=== PATIENT | male | born 1965 | race Caucasian/White ===

== ENCOUNTER → 2022-11-18 09:10 | Outpatient (CLI) | payer OTHER, SELFPAY ==
[2022-11-18 10:49] LABS: COVID19 -Nasal RAPID Negative (Negative)
== END ==
PROVIDERS: PCP Family Medicine; Visit Provider Surgery
DX: Z20.822 Contact with and (suspected) exposure to COVID-19 (principal); Z01.812 Encounter for preprocedural laboratory examination
CPT/HCPCS: 87635; C9803

== ENCOUNTER 2022-11-19 14:25 | Day surgery (SDC) | payer OTHER, SELFPAY ==
[2022-11-19 14:42] VITALS: BMI 24.4
[2022-11-19 14:47] VITALS: BP 112/73; PULSE 50; RESP 16; TEMP 36.2; O2SAT 99
[2022-11-19] MEDS: LACTATED RINGERS 1,000 ML 42 ML IV (14:57)
--- NOTE | 2022-11-19 15:28 | P.HP_ITS ---
History of Present Illness History of Present Illness Date Patient Seen: 11/19/22 Time Patient Seen: 15:28 Chief complaint: SCREENING COLONOSCOPY Narrative: Bro is a 57-year-old man who is here for colonoscopy for colon cancer screening. His last 1 was just over 10 years ago. His father had colon cancer in his 70s. Patient History Medical History (Updated 11/19/22 @ 15:29 by Mansoor Brandt MD) Bilateral hand numbness Bilateral shoulder pain Body posture problem Cellulitis of hand, left Chronic left shoulder pain Eczema History of gluten sensitivity Hypothyroidism (acquired) Screen for colon cancer Swelling of joint, hand, left Tinnitus of left ear Upper extremity somatic dysfunction Family & Social History Social History: household members spouse Tobacco & Substance use: Smoking Status Never smoker alcohol intake current alcohol intake frequency a few times a week Substance Use Type does not use Meds Home Medications and Allergies Home Medications Medication Instructions Recorded Confirmed Type betamethasone valerate 0.1 % 1 applic topical BID PRN rash #15 10/22/20 11/19/22 Rx topical cream grams thyroid (pork) 90 mg tablet ([employer] 90 mg PO DAILY 10/24/20 11/19/22 History Thyroid) sodium sul 1.479 gram-potas ch See Rx Instructions PO PER PKG DIR 11/06/22 11/19/22 Rx 0.188 gram-magnes sul 0.225 gram #24 tabs tablet (Sutab) Allergies Allergy/AdvReac Type Severity Reaction Status Date / Time No Known Drug Allergies Allergy Verified 11/19/22 14:38 Exam Vital Signs (past 8 hours): - 11/19/22 14:47 Temperature 97.1 F L Pulse Rate 50 L Respiratory Rate 16 Blood Pressure 112/73 Pulse Oximetry 99 Oxygen Delivery Method Room Air Oxygen Delivery Method Room Air Const General: healthy appearing Assessment & Plan Assessment and plan (1) Colon cancer screening: Status: Acute Plan Reviewed risks and benefits of colonoscopy and he would like to proceed. Time Spent With Patient Critical Care time: I spent a total of [] minutes of critical care time on this patient's care today; this time is exclusive of procedural time.
--- NOTE | 2022-11-19 16:18 | PM.OP.COLON ---
Operative Date/Time/Diagnoses Date of procedure: 11/19/22 Time of procedure: 16:18 Pre-op diagnosis: Colon cancer screening Post-op diagnosis: same Procedure & Clinicians Study performed: Colonoscopy Same procedure as scheduled: Yes Surgeon: Mansoor Brandt Procedure Notes Procedure in detail: Surgeon: Mansoor Brandt MD Anesthesia: Dr. Porras Procedure: The patient was brought to the endoscopy suite, placed in left lateral decubitus position. The patient was connected to monitoring devices. A time-out was performed. Sedation was administered. Once the patient was adequately sedated, a digital rectal exam was performed and was normal. The scope was then inserted and advanced to the cecum where the appendiceal orifice was identified and photographed. The scope was then slowly withdrawn over greater than 6 minutes. The mucosa was thoroughly inspected. No polyps or other lesions were seen. The scope was retroflexed in the rectum. No abnormalities were seen. The scope was straightened and removed. The patient was awakened and brought to recovery. Scope withdrawal time: 7 minutes Sedation time: 12 minutes EBL: 0 Findings: Normal colon Post-procedure Recommendations: Colonoscopy in 10 years Disposition: PACU
[2022-11-19 16:20] VITALS: BP 86/50; PULSE 46; RESP 10; TEMP 36.5; O2SAT 98
[2022-11-19 16:25] VITALS: BP 89/56; PULSE 47; RESP 15; TEMP 36.3; O2SAT 99
[2022-11-19 16:32] VITALS: BP 115/75; PULSE 48; RESP 16; TEMP 36.6; O2SAT 98
== END 2022-11-19 16:45 | disposition home or self-care (01) ==
PROVIDERS: PCP Family Medicine; Referring Provider Surgery; Visit Provider Surgery
PROC: 0DJD8ZZ Inspection of Lower Intestinal Tract, Via Natural or Artificial Opening Endoscopic (ICD-10-PCS; CPT 45378; principal; 2022-11-19 14:45)
DX: Z12.11 Encounter for screening for malignant neoplasm of colon (principal); Z80.0 Family history of malignant neoplasm of digestive organs
CPT/HCPCS: 45378